=== PATIENT | female | born 1990 | race African-American/Black ===

== ENCOUNTER 2022-04-02 10:02 | Outpatient (CLI) | payer OTHER ==
[2022-04-02 11:13] LABS: #Eosinphils 0.1 10x3/uL (0.0-0.5); #Monocytes 0.5 10x3/uL (0.0-1.1); #Neutrophils 5.2 10x3/uL (1.5-8.4); %Basophils 0.5 % (0.0-2.0); %Eosinophils 0.7 % (0.0-6.0); %Lymphocytes 28.1 % (18.0-47.0); %Neutrophils 64.3 % (40.0-75.0); Mean Corpuscular HGB CONC 32.5 g/dL (32.0-36.0); Mean Corpuscular Hemoglobin 25.6 pg (27.0-33.0); Mean Corpuscular Volume 78.8 fl (81.6-98.3); Mean Platelet Volume 12.2 fl (7.4-10.4); Platelet Count 241 10x3/uL (150-450); RBC Distribution Width 16.7 % (11.5-14.5); Red Blood Cell (RBC) Count 4.68 10x6/uL (3.90-5.03)
[2022-04-02 11:29] LABS: Anion Gap 12 mmol/L (10-20); BUN (Urea Nitrogen) 11 mg/dL (7.0-18.7); Calc. Creatinine Clearance 0 mL/min (70-130); Calcium 8.6 mg/dL (7.8-10.44); Carbon Dioxide 21 mmol/L (22-29); Chloride 105 mmol/L (98-107); Estimated GFR 113; Glucose 168 mg/dL (70-105); Potassium 4.1 mmol/L (3.5-5.1); Sodium 134 mmol/L (136-145)
[2022-04-02 11:41] LABS: INR-International Normal Ratio 4.9; Prothrombin Time 48.7 sec (9.5-12.1)
== END 2022-04-02 10:03 | disposition home or self-care (01) ==
LOC: LABBT 10:02
PROVIDERS: ATTEND Internal Medicine Cardiovascular Disease
DX: Z01.812 Encounter for preprocedural laboratory examination (principal); I82.90 Acute embolism and thrombosis of unspecified vein
CPT/HCPCS: 80048; 85025; 85610; 85730

== ENCOUNTER 2022-04-08 06:03 | Day surgery (SDC) | payer OTHER ==
[2022-04-07 15:30] VITALS: BMI 43.2
[2022-04-08] MEDS ORDERED: PROPOFOL 200 MG/20 ML VIAL ONE (08:09)
[2022-04-08] MEDS ORDERED: Lidocaine 1% PF 5 ML VIAL ONE (08:09)
== END 2022-04-08 09:30 | disposition home or self-care (01) ==
LOC: SDC 06:03
PROVIDERS: ATTEND Internal Medicine Cardiovascular Disease
PROC: B246ZZ4 Ultrasonography of Right and Left Heart, Transesophageal (ICD-10-PCS; principal; 2022-04-08)
DX: I21.4 Non-ST elevation (NSTEMI) myocardial infarction (principal); I08.1 Rheumatic disorders of both mitral and tricuspid valves; I70.0 Atherosclerosis of aorta; E11.9 Type 2 diabetes mellitus without complications; I10 Essential (primary) hypertension; Z87.891 Personal history of nicotine dependence; Z79.01 Long term (current) use of anticoagulants; Z79.4 Long term (current) use of insulin; Z79.82 Long term (current) use of aspirin; Z91.018 Allergy to other foods; Z95.2 Presence of prosthetic heart valve
CPT/HCPCS: 36416; 93312; J2704

== ENCOUNTER 2022-11-24 18:26 | Observation (INO) | payer OTHER ==
[~2022-11-24 18:26] MED LIST: Iopamidol-370 76% 500 ML MDV (1 ML CHARGE) ONE
[2022-11-24 19:16] LABS: #Eosinphils 0.1 thou/uL (0.0-0.7); #Monocytes 0.6 thou/uL (0.11-0.59); #Neutrophils 5.9 thou/uL (1.40-6.50); %Basophils 0.4 % (0.0-1.0); %Eosinophils 1.3 % (0.0-10.0); %Lymphocytes 29.1 % (21.0-51.0); %Monocytes 6.3 % (0.0-10.0); %Neutrophils 62.7 % (42.0-75.0); Hematocrit 38.9 % (36.0-47.0); Hemoglobin 12.1 g/dL (12.0-16.0); Mean Corpuscular HGB CONC 31.1 g/dL (32.0-36.0); Mean Corpuscular Hemoglobin 25.1 pg (27.0-31.0); Mean Corpuscular Volume 80.7 fl (78.0-98.0); Mean Platelet Volume 11.7 fL (7.4-10.4); Platelet Count 288 10x3/uL (130-400); RBC Distribution Width 15.8 % (11.5-14.5); Red Blood Cell (RBC) Count 4.82 mill/uL (4.20-5.40); White Blood Cell (WBC) Count 9.4 10x3/uL (4.8-10.8)
[2022-11-24] MEDS ORDERED: LORazepam 2 MG/ML SYR.(CARPUJECT) ONE (19:25)
[2022-11-24 19:39] LABS: ALT (SGPT) 27 U/L (8-55); AST (SGOT) 25 U/L (5-34); Albumin 4.1 g/dL (3.5-5.0); Alkaline Phosphatase 78 U/L (40-110); Anion Gap 10 mmol/L (10-20); BUN (Urea Nitrogen) 13 mg/dL (7.0-18.7); Bilirubin, Total 0.4 mg/dL (0.2-1.2); Calc. Creatinine Clearance 0 mL/min (70-130); Calcium 9.1 mg/dL (7.8-10.44); Carbon Dioxide 23 mmol/L (22-29); Chloride 104 mmol/L (98-107); Estimated GFR 117; Globulin 3.8 g/dL (2.4-3.5); Glucose 89 mg/dL (70-105); Lipase 25 U/L (8-78); Potassium 3.5 mmol/L (3.5-5.1); Protein, Total 7.9 g/dL (6.0-8.3); Sodium 133 mmol/L (136-145)
[2022-11-24 19:42] LABS: BHCG - Serum Negative (NEGATIVE); Pregs Control Background? CLEAR/WHITE (CLR/WHITE); Pregs Control Bar Appear? YES (CONTROL BAR)
[2022-11-24 19:48] LABS: PTT 33.8 sec (22.9-36.1)
[2022-11-24 19:49] LABS: INR-International Normal Ratio 2.6; Prothrombin Time 28.9 sec (12.0-14.7)
[2022-11-24 19:50] LABS: Troponin I Less than 0.010 ng/mL (< 0.028)
[2022-11-24] MEDS ORDERED: hydrOXYzine 25 MG TAB ONE (20:58)
[2022-11-24 22:34] LABS: Troponin I Less than 0.010 ng/mL (< 0.028)
[2022-11-24] MEDS ORDERED: Ondansetron ODT 4 MG TAB PO PRN (22:52)
[2022-11-24] MEDS ORDERED: Dextrose 5% in Water 1,000 ML IV PRN (22:52)
[2022-11-24] MEDS ORDERED: Dextrose 50% Abboject 50 ML SYRINGE SLOW IVP PRN (22:52)
[2022-11-24] MEDS ORDERED: Glucagon 1 MG/ML KIT IM PRN (22:52)
[2022-11-24] MEDS ORDERED: HumaLOG 300 UNITS/3 ML VIAL SC PRN ×2 (22:55)
[2022-11-24] MEDS ORDERED: hydrOXYzine 25 MG TAB PO PRN (22:58)
[2022-11-24] MEDS ORDERED: hydrOXYzine 25 MG TAB PO SCH (23:15)
[2022-11-24 23:40] VITALS: BMI 45.1
[2022-11-24] MEDS ORDERED: Melatonin 3 MG TAB PO PRN (23:46)
[2022-11-25 03:58] LABS: #Eosinphils 0.1 thou/uL (0.0-0.7); #Monocytes 0.7 thou/uL (0.11-0.59); #Neutrophils 4.7 thou/uL (1.40-6.50); %Basophils 0.4 % (0.0-1.0); %Eosinophils 1.6 % (0.0-10.0); %Lymphocytes 31.4 % (21.0-51.0); %Monocytes 8.4 % (0.0-10.0); Hematocrit 34.7 % (36.0-47.0); Mean Corpuscular HGB CONC 31.7 g/dL (32.0-36.0); Mean Corpuscular Hemoglobin 25.4 pg (27.0-31.0); Mean Corpuscular Volume 80.1 fl (78.0-98.0); Mean Platelet Volume 11.4 fL (7.4-10.4); Platelet Count 249 10x3/uL (130-400); RBC Distribution Width 15.7 % (11.5-14.5); Red Blood Cell (RBC) Count 4.33 mill/uL (4.20-5.40); White Blood Cell (WBC) Count 8.2 10x3/uL (4.8-10.8)
[2022-11-25 04:20] LABS: Anion Gap 12 mmol/L (10-20); BUN (Urea Nitrogen) 12 mg/dL (7.0-18.7); Calc. Creatinine Clearance 173 mL/min (70-130); Calcium 8.4 mg/dL (7.8-10.44); Carbon Dioxide 22 mmol/L (22-29); Chloride 108 mmol/L (98-107); Estimated GFR 90; Glucose 100 mg/dL (70-105); Potassium 3.5 mmol/L (3.5-5.1); Sodium 138 mmol/L (136-145)
[2022-11-25 04:27] LABS: Troponin I Less than 0.010 ng/mL (< 0.028)
[2022-11-25] MEDS ORDERED: Insulin Glargine 30 UNITS/0.3 ML VIAL SC SCH (09:00)
[2022-11-25] MEDS ORDERED: Aspirin 81 mg Enteric Coated Tablet PO SCH (09:00)
[2022-11-25 12:13] VITALS: BP 133/80; TEMP 97.8
[2022-11-25] MEDS ORDERED: Warfarin Sodium 5 MG TAB PO SCH (17:00)
[2022-11-25] MEDS ORDERED: Warfarin Sodium 10 MG TAB PO SCH (21:00)
[2022-11-25] MEDS ORDERED: Atorvastatin Calcium 10 MG TAB PO SCH (21:00)
== END 2022-11-25 15:00 | disposition home or self-care (01) ==
LOC: ERS 18:26 → 2SW 21:36
PROVIDERS: ADMIT Student in an Organized Health Care Education/Training Program; ATTEND Student in an Organized Health Care Education/Training Program
DX: R07.9 Chest pain, unspecified (principal); I21.4 Non-ST elevation (NSTEMI) myocardial infarction; E11.9 Type 2 diabetes mellitus without complications; G47.00 Insomnia, unspecified; F41.9 Anxiety disorder, unspecified; I10 Essential (primary) hypertension; Z95.2 Presence of prosthetic heart valve; Z79.4 Long term (current) use of insulin; Z79.84 Long term (current) use of oral hypoglycemic drugs; Z79.01 Long term (current) use of anticoagulants; Z91.048 Other nonmedicinal substance allergy status; Z90.49 Acquired absence of other specified parts of digestive tract; F17.210 Nicotine dependence, cigarettes, uncomplicated; Z79.899 Other long term (current) drug therapy
CPT/HCPCS: 36415; 36416; 71045; 71275; 80048; 80053; 83690; 83880; 84484; 84703; 85025; 85610; 85730; 93005; 96374; G0378; J1815; J2060; Q9967